=== PATIENT | male | born 1995 | race Caucasian/White ===

== ENCOUNTER 2023-05-01 17:12 | Emergency (ER) | payer BC, OTHER ==
[2023-05-01 18:16] VITALS: BP 137/91; PULSE 91; RESP 20; TEMP 98.2; BMI 25.0
[2023-05-01] MEDS ORDERED: IBUPROFEN 600 MG TABLET (FP) PO ONE (18:31)
[2023-05-01] MEDS ORDERED: METHOCARBAMOL 500 MG TABLET ONE (18:31)
[2023-05-01] MEDS: IBUPROFEN 600 MG TABLET (FP) PO ONE (18:33)
[2023-05-01] MEDS: METHOCARBAMOL 750 MG TABLET PO STA (18:34)
== END 2023-05-01 19:30 | disposition home or self-care (01) ==
LOC: FER 17:12
DX: M25.551 Pain in right hip (principal); S76.011A Strain of muscle, fascia and tendon of right hip, initial encounter; X58.XXXA Exposure to other specified factors, initial encounter
CPT/HCPCS: 73502-TC-RT-FY; 99283-25